=== PATIENT | female | born 1940 | race Caucasian/White ===

== ENCOUNTER 2017-11-18 13:14 | Outpatient (CLI) | payer MEDICARE ==
[~2017-11-18 13:14] MED LIST: Gadobenate Dimeglumine 529 MG/1 ML (20ML VIAL) ONE
--- NOTE | 2017-11-18 15:08 | MRI ---
BRAIN MRI WITH AND WITHOUT CONTRAST: Date: 11/18/17 COMPARISON: 08/21/16. HISTORY: Follow-up pituitary tumor. History of pituitary tumor surgery. TECHNIQUE: Brain MRI is performed with and without intravenous Gadolinium administration. Multisequential, multi planar imaging is performed. Due to patient movement, dynamic imaging was not performed. FINDINGS: No parenchymal hemorrhage. No extra-axial hematoma. No parenchymal mass, mass effect, or midline shif t. Brain volume is age-appropriate. Cortical brody-white matter differentiation is preserved. Ventricles and sulci are patent and symmetric. Central arterial flow-voids are maintained. Absent restricted diffusion. No pathologic enhancement of the brain parenchyma. No significant T2 and FLAIR white matter hyperintensities. Calvarium has a normal marrow signal intensity. Midline brain parenchymal structures are unremarkable . Partial opacification of the right mastoid air cells. There is left maxillary sinus mucosal disease. MRI PITUITARY GLAND: Stable residual pituitary tissue is noted along the central and right aspect of the sella. On the pos tcontrast images, there is no evidence of a micro or macroadenoma. Pituitary stalk is midline. Optic chiasm is unremarkable. IMPRESSION: Stable appearance of the residual pituitary gland. Stable postoperative changes. POS: [facility]
== END 2017-11-18 13:15 | disposition home or self-care (01) ==
LOC: TBSIIMAG 13:14
PROVIDERS: ATTEND Neurological Surgery
DX: D35.2 Benign neoplasm of pituitary gland (principal); Z98.890 Other specified postprocedural states
CPT/HCPCS: 70553; A9579

== ENCOUNTER 2019-06-09 13:09 | Outpatient (CLI) | payer MEDICARE ==
[2019-06-09] MEDS ORDERED: Gadobenate Dimeglumine 529 MG/1 ML (20ML VIAL) ONE (16:00)
--- NOTE | 2019-06-09 16:09 | MRI ---
MRI BRAIN AND SELLA WITH AND WITHOUT CONTRAST: 06/09/19 HISTORY: 78-year-old female with ICD-10: D35.2, benign neoplasm of pituitary gland. TECHNIQUE: Multiplanar, multisequence MRI of the whole brain, plus thin slices through sella turcica, including dynamic sequences, obtained pre and post IV injection of 10 mL of Multihance gadolinium abased contra st agent. COMPARISON: 11/18/17. FINDINGS: There is absence of pituitary tissue in the left side of the sella turcica. There is residual pituita ry tissue in the right side of the sella turcica. This has not changed. No mass in the cavernous sinu ses. The infundibular stalk is midline. No impingement upon optic chiasm. There is no abnormal intra-axial enhancement, mass, mass effect, midline shift, or extra-axial fluid collection. The ventricles are within normal limits in size and configuration. No restricted diffusio n. Mild chronic ischemic white matter changes, not unusual for age. No interval change overall. IMPRESSION: 1. No interval change overall. 2. 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 3. The brain is within normal limits for age. POS: OFF
== END 2019-06-09 13:10 | disposition home or self-care (01) ==
LOC: TBSIIMAG 13:09
PROVIDERS: ATTEND Neurological Surgery
DX: D32.9 Benign neoplasm of meninges, unspecified (principal)
CPT/HCPCS: 70553; 82565; A9577